=== PATIENT | male | born 1975 | race Two or more races ===

== ENCOUNTER 2018-03-12 14:08 | Emergency (ER) | payer OTHER ==
[~2018-03-12] VITALS: Ht 170.2 cm; Wt 87.4 kg
[2018-03-12 17:51] VITALS: BP 176/105
== END 2018-03-12 17:52 | disposition home or self-care (01) ==
LOC: EME 14:08
DX: G43.909 Migraine, unspecified, not intractable, without status migrainosus (principal); I10 Essential (primary) hypertension; F41.9 Anxiety disorder, unspecified; Z87.891 Personal history of nicotine dependence
CPT/HCPCS: 70450; 99281; 99285; J1200; J1885; J2765; J7030